=== PATIENT | female | born 1995 | race Caucasian/White ===

== ENCOUNTER 2020-11-19 02:59 | Emergency (ER) | payer BC ==
[~2020-11-19] VITALS: Ht 165.1 cm; Wt 104.3 kg
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
--- NOTE | 2020-11-19 03:35 | NUR ---
XRAY AT BEDSIDE
[2020-11-19] MEDS ORDERED: IBUPROFEN 400 MG TABLET ONE (03:45)
[2020-11-19] MEDS ORDERED: IBUPROFEN 400 MG TABLET PO ONE (04:00)
--- NOTE | 2020-11-19 04:55 | NUR ---
Patient discharged to home in stable condition. Written and verbal after care instructions given. Patient verbalizes understanding of instruction. WRAPPED 1ST TOE OF LEFT FOOT WITH GAUZE. VSS. PT AMBULATORY.
[2020-11-19 04:59] VITALS: BP 156/114
== END 2020-11-19 05:00 | disposition home or self-care (01) ==
LOC: ER 02:59
DX: S90.112A Contusion of left great toe without damage to nail, initial encounter (principal); W22.8XXA Striking against or struck by other objects, initial encounter; Y93.89 Activity, other specified; Y92.89 Other specified places as the place of occurrence of the external cause; Y99.8 Other external cause status
CPT/HCPCS: 73660-TC